=== PATIENT | female | born 1965 | race Two or more races ===

== ENCOUNTER 2018-02-04 08:52 | Emergency (ER) | payer MEDICAID, OTHER ==
[~2018-02-04] VITALS: Ht 160 cm; Wt 78.5 kg
[2018-02-04 09:09] VITALS: BP 130/72
[2018-02-04 10:10] LABS: Basophils # (auto) 0 uL; Basophils % (auto) 0.1 % (0.0-2.0); Eosinophils # (auto) 0 uL; Eosinophils % (auto) 0.4 % (0.0-7.0); Hematocrit 40.9 % (36.0-46.0); Hemoglobin 13.5 g/dL (12.2-16.2); Lymphocytes # (auto) 2.1 uL; Lymphocytes % (auto) 19.1 % (10.0-50.0); Mean Corpuscular Hemoglobin 29.2 pg (28.0-32.0); Mean Corpuscular Hgb Conc. 33.1 g/dL (32.0-36.0); Mean Corpuscular Volume 88.3 fL (80.0-100.0); Monocytes # (auto) 0.5 uL; Neutrophils # (auto) 8.3 uL; Neutrophils % (auto) 75.4 % (37.0-80.0); Platelet Count (auto) 372 10^3/uL (140-450); Red Blood Cells 4.63 10^6/uL (4.0-5.20); Red Cell Distribution Width 13.7 % (11.8-14.3); White Blood Cell 10.9 10^3/uL (4.4-10.8)
[2018-02-04 10:23] LABS: Albumin 3.8 g/dL (3.4-5.0); Calcium 8.6 mg/dL (8.5-10.1); Potassium 3.3 mmol/L (3.5-5.1)
[2018-02-04 10:28] LABS: BUN/Creatinine Ratio 21.8; Bilirubin, Total 1.2 mg/dL (0.2-1.0); Total Protein 7.9 g/dL (6.4-8.2)
[2018-02-04] MEDS ORDERED: LOPERAMIDE 2 MG/10ml ORAL soln PO ONE (10:30)
[2018-02-04] MEDS ORDERED: SODIUM CHLORIDE 0.9% 1,000 ML IV ONE (10:30)
[2018-02-04] MEDS ORDERED: LOPERAMIDE HCL 2 MG CAP ONE (10:34)
[2018-02-04] MEDS ORDERED: LOPERAMIDE HCL 2 MG CAP PO ONE (10:45)
[2018-02-04 10:48] LABS: Urine Bacteria NONE SEEN /hpf (None Seen); Urine Blood Negative /uL (Negative); Urine Mucus FEW (None Seen); Urine Specific Gravity 1.026 (1.001-1.035); Urine WBC 3 /hpf (0 - 5)
[2018-02-04] MEDS ORDERED: POTASSIUM EFFERVESENT TAB 25 MEQ PO ONE (11:00)
[2018-02-04] MEDS ORDERED: cefTRIAXone 1GM/50ML D5W 50 ML IV ONE (12:00)
== END 2018-02-04 13:18 | disposition home or self-care (01) ==
LOC: ER 08:55
DX: K60.2 Anal fissure, unspecified (principal); I10 Essential (primary) hypertension; E78.5 Hyperlipidemia, unspecified; K21.9 Gastro-esophageal reflux disease without esophagitis; Z90.49 Acquired absence of other specified parts of digestive tract
CPT/HCPCS: 36415; 74176; 80053; 81001; 85025; 93005; 96361; 96365; 99284; J0696; J7030